=== PATIENT | female | born 1990 | race Caucasian/White ===

== ENCOUNTER 2018-03-21 10:25 | Outpatient (CLI) | payer OTHER ==
[~2018-03-21] VITALS: Ht 174 cm; Wt 91.5 kg
[2018-03-21 10:50] VITALS: BP 151/90
[2018-03-21] MEDS ORDERED: PRENTAB9 PO (10:52)
[2018-03-21] MEDS ORDERED: OMEGCAP4 PO (10:52)
[2018-03-21 11:00] VITALS: BP 133/84
[2018-03-21 11:13] VITALS: BP 136/85
--- NOTE | 2018-03-21 13:41 | HPE ---
DATE OF ADMISSION: 03/21/2018 28-year-old, 1, para 0, last menstrual period (LMP) 06/16/2017, estimated date of confinement (EDC) 03/23/2018, history of questionable spontaneous rupture of membranes (SROM) at 39 and 2 weeks gestation. Risk factors is the baby has renal pelviectasis. Her labs are B+, HIV negative, hepatitis negative, RPR negative, rubella immune. Varicella immune. Pap normal. Urine negative. Gonorrhea and chlamydia negative. 1 hour glucose was 115. GBS is positive. On examination, no distress. Symphysis fundus height is 39. Four quadrant bowel sounds are noted. Category 1 strip. No contractions. Accelerations noted, moderate variability and baseline was normal. On examination, there was no evidence of spontaneous rupture of membranes. Nitrazine was negative. Slide was negative for ferning, for bacterial vaginosis (BV) or yeast. Cervix was closed, posterior, 2 cm, -3 station. Urine is 1.010, pH 7, trace of blood. Blood pressure initially was 151/90, respirations 18, pulse 70, temperature 97.6. We established that she had no contractions and she did not have ruptured membranes, has an appointment in 2 days' time. She was discharged with instructions and she was encouraged to keep her appointment. She was undelivered.
== END 2018-03-21 12:00 | disposition home or self-care (01) ==
LOC: M LDO 10:25
PROVIDERS: ATTEND Obstetrics & Gynecology
DX: O47.1 False labor at or after 37 completed weeks of gestation (principal); Z3A.39 39 weeks gestation of pregnancy
CPT/HCPCS: 59025; G0378; G0463

== ENCOUNTER 2018-03-26 05:29 | Inpatient (IN) | payer OTHER ==
[~2018-03-26] VITALS: Ht 172.7 cm; Wt 92.8 kg
[2018-03-26] VITALS (41 sets, daily range): BP systolic 114–170; BP diastolic 65–99
[~2018-03-26 05:29] MED LIST: OMEGCAP4 PO; PRENTAB9 PO
[2018-03-26] MEDS ORDERED: LR 1,000 ML IV SCH ×2 (07:24)
[2018-03-26] MEDS ORDERED: PENICILLIN G POTASSIUM IV 5 MU in D5W MINI-BAG PLUS 100 ML IV STA ×2 (07:24→08:03)
[2018-03-26] MEDS ORDERED: LACTATED RINGER'S 1000 ML IV STA (07:24)
--- NOTE | 2018-03-26 07:48 | HPEPDOC ---
Obstetrical History & Physical General Date of Admission Mar 26, 2018 at 07:29 History of Present Illness Madhuri is a 28yo with SIUP at 40w3d by lmp c/w 8wk u/s who presents with increasingly uncomfortable/regular ctx since 2300 last night. No LOF. No vaginal bleeding. Good movement. No f/c/n/v/CP/SOB/LAWSON/vision changes. 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: No pertinent history Past Medical History Medical History starting BMI 25.5 Surgical History: [place] teeth, Other (left arm ORIF) Family History Significant Family History: No pertinent family hx Social History Marital Status: Family situation: Spouse/partner home Psychosocial History: No pertinent psych hx * Smoker: non-smoker Alcohol: Denies Drugs: denies Imunizations Tdap status: current Influenza Status: current Allergies Coded Allergies: Bismuth Subsalicylate (Verified Allergy, Mild, RASH, 03/21/18) [place] (Verified Allergy, Mild, RASH, 03/21/18) Medications Scheduled Multivitamins/ ( 27-0.8 mg) 1 Tab Tab, 1 TAB PO DAILY Miscellaneous Medications (Purd[place] III Epa+Dha 1000 mg) 1 Cap Cap, 1 CAP PO Physical Examination Physical Examination GENERAL: Alert and oriented times three. ABDOMEN: Gravid and non-tender to touch. FETUS: Is vertex (VTX) by sterile vaginal examination (SVE) EXTREMITIES: No edema Vital Signs/I&O Vital Signs Date Time Temp Pulse Resp B/P (MAP) Pulse Ox O2 Delivery O2 Flow Rate FiO2 03/26/18 05:46 98.3 100 149/99 (116) Pertinent Laboratoy Data Blood Type: B+ RBC Antibody Screen: Negative HIV: Negative Hepatitis B: Negative Hepatitis C: Unknown Rapid Plasma Reagin: Nonreactive Rubella: Immune Varicella: Immune Chlamydia/Gonorrhea: Negative Group B Streptococcus: Positive Cystic Fibrosis: Negative Glucose Tolerance Test: 115 Anatomy Ultrasound Ultrasound Date: Nov 06, 2017 Placenta Location: Posterior Normal Anatomy: No (bilateral renal pyelectasis, resolved on u/s on Nov) Placenta Previa: No Steroid Therapy Steroid Therapy: No Vaginal Examination Dilation: 4 cm Effacement: 80% Station: -2 Cervical Consistency: Soft Cervical Position: Middle Presentation: Cephalic presentation Assessment Heart Rate (FHR): 130 Variability: Moderate Accelerations: Positive Decelerations: None Tocometer Contractions: Yes Frequency: irregular Assessment/Plan Assessment Madhuri is a 28yo with SIUP at 40w3d by lmp c/w 8wk u/s with new diagnosis of GHTN in latent labor. She had elevated bp at triage visit on Feb and again today is running 140's systolic/90's diastolic. No sx of pre-E. Cat I FHRT, irregular ctx. GBS positive. Cephalic by SCE, 4/80/-2. PMhx only s ignificant for starting BMI 25.5, 31lb weight gain. Plan Admit and orient. Sample Coordinator and consent. Diet: clear liquids Group B Streptococcus (GBS) positive: penicillin per protocol Labs and intravenous (IV) per unit protocol with pre-E profile Counseled on Pitocin and augmentation of labor (IOL). Lactated Ringers (LR): Bolus 500 mL, then at 125 mL/hr. Anticipate normal spontaneous delivery () Candidate for epidural as desired MD Jessee Burkett Katrina D MD Mar 26, 2018 07:48
[2018-03-26] MEDS ORDERED: OXYTOCIN DRIP 30 UNITS in APPROPRIATE DILUENT 1 EA IV SCH ×2 (08:00→18:45)
[2018-03-26] MEDS ORDERED: PENICILLIN G POTASSIUM IV 2.5 MU in APPROPRIATE DILUENT 1 EA IV SCH ×2 (08:15→11:30)
[2018-03-26 08:37] LABS: HEMATOCRIT 38.9 % (36.0-47.0); HEMOGLOBIN 13.1 g/dl (12.0-15.5); MEAN CORPUSCULAR HEMOGLOBIN 30.3 pg (27.0-33.0); MEAN CORPUSCULAR HGB CONC 33.7 g/dl (32.0-36.5); MEAN CORPUSCULAR VOLUME 89.8 fl (80.0-96.0); PLATELET COUNT, AUTOMATED 180 10^3/uL (150-450); RED BLOOD COUNT 4.33 10^6/uL (4.00-5.40); WHITE BLOOD COUNT 10.1 10^3/uL (4.0-10.0)
[2018-03-26 08:51] LABS: ALT/SGPT 17 U/L (12-78); BILIRUBIN,TOTAL 0.4 MG/DL (0.2-1.0); GLOMERULAR FILTRATION RATE > 60.0 (>60); LDH LACTATE DEHYDROGENASE 167 U/L (84-246)
[2018-03-26] MEDS ORDERED: FAMOTIDINE 20 MG TAB PO PRN (10:45)
[2018-03-26] MEDS ORDERED: FENTANYL 2MCG/ML ROPIVACAINE 0.2% IN 0.9% NACL 100ML IVBAG As Ordered ONE (10:58)
[2018-03-26] MEDS: PENICILLIN G POTASSIUM IV 2.5 MU in APPROPRIATE DILUENT 1 EA IV SCH ×2 (12:00→16:32)
[2018-03-26] MEDS ORDERED: FENTANYL/ROPIVACAINE/NACL BAG 100 ML EPIDURAL SCH (12:15)
[2018-03-26] MEDS ORDERED: EPIDURAL/PCA KEYS XX PRN (12:15)
[2018-03-26] MEDS ORDERED: NALOXONE INJ 0.4 MG/1 ML VIAL (J2310) IV PRN (12:15)
[2018-03-26] MEDS ORDERED: ePHEDrine SULFATE 25 MG/5 ML(5MG/ML) SYRINGE IV PRN (12:15)
[2018-03-26] MEDS ORDERED: LACTATED RINGER'S 1000 ML IV PRN (12:15)
[2018-03-26] MEDS ORDERED: EPIDURAL COMMENT XX SCH (12:15)
[2018-03-26] MEDS ORDERED: diphenhydrAMINE INJ 50MG/ML VIAL (J1200) IV PRN (12:15)
[2018-03-26] MEDS ORDERED: REFRIGERATOR IV KEYS XX PRN (12:15)
[2018-03-26] MEDS ORDERED: ONDANSETRON 4MG/2ML VIAL (J2405) IV PRN (12:15)
--- NOTE | 2018-03-26 17:15 | IPNPDOC ---
Text Note Date of Service The patient was seen on 03/26/18. NOTE Pitocin at 12 mu/min FHT Cat 1 all day At ~noon after epidural with Daniels was 4 cm SROM at ~1430, clr Cx C/C/+2/VAZQUEZ Start pushing in ~30 min Sessions MD KESSLER,Teresita, I+O VS, Teresita I+O Laboratory Tests 03/26/18 08:15 Red Blood Count 4.33, Mean Corpuscular Volume 89.8, Mean Corpuscular Hemoglobin 30.3, Mean Corpuscular Hemoglobin Concent 33.7, Red Cell Distribution Width 12.5, Aspartate Amino Transf (AST/SGOT) 18, Alanine Aminotransferase (ALT/SGPT) 17, Lactate Dehydrogenase 167, Total Bilirubin 0.4, Uric Acid 5.0 Vital Signs Date Time Temp Pulse Resp B/P (MAP) Pulse Ox O2 Delivery O2 Flow Rate FiO2 03/26/18 12:50 64 18 141/83 (102) 03/26/18 12:07 98.2 SESSIONS,DRAKE Garrett MD Mar 26, 2018 17:14
[2018-03-26] MEDS ORDERED: RHOGAM 300 MCG (1500 IU) INJ (J2790) IM SCH (18:45)
[2018-03-26] MEDS ORDERED: IBUPROFEN 800 MG TAB PO PRN (18:45)
[2018-03-26] MEDS ORDERED: METOCLOPRAMIDE INJ 10MG/2ML VIAL (J2765) IV PRN (18:45)
[2018-03-26] MEDS ORDERED: MEASLES,MUMPS,RUBELLA VACCINE INJ (MMR-II) (90707) SC SCH (18:45)
[2018-03-26] MEDS ORDERED: DIBUCAINE 1% OINTMENT 30GM TOP PRN (18:45)
--- NOTE | 2018-03-26 18:57 | DNPDOC ---
[facility] Delivery Note Delivery Note DATE OF DELIVERY: @1815 PREDELIVERY DIAGNOSIS: 40 3/7 weeks' gestation and labor. POST DELIVERY DIAGNOSIS: Delivered. PROCEDURE: Spontaneous vaginal delivery INTERNET SALESPERSON: Dr. Hanson ANESTHESIA: epidural ESTIMATED BLOOD LOSS: 200 mL. FINDINGS: 8 pound 12 ounce male , Score 8/9 DELIVERY SUMMARY: Excellent effort, VAZQUEZ to LOT and no delay of the vtx. Posterior left hand noted to be compound under the chin on right side of face, anterior right shoulder. No delay of either shoulder. Vigorous male to abdomen. Cord C/C by FOB. Cord blood. Placenta intact with slight traction and fundal massage. Pit going 999. Fundus firm. 1st degr lac repaired with 3- 0 vicryl, left labial extension and complete separation repaired with 4-0 vicryl. Joined sutures medially at the interior vaginal wall. Good cosmesis/hemostasis. Sessions MD HANSON,DRAKE Garrett MD Mar 26, 2018 18:57
[2018-03-26] MEDS: ACETAMINOPHEN TAB 650MG DOSE (2X325MG) PO PRN (21:18)
[2018-03-26] MEDS: DOCUSATE SODIUM 100 MG CAP PO SCH (21:18)
--- NOTE | 2018-03-27 05:12 | IPNPDOC ---
Text Note Date of Service The patient was seen on 03/27/18. NOTE PPD1 States feeling well, pain controlled with prescribed meds. Baby bonding and feeding well. No heavy VB. Lochia slowing. Ambulating and voiding well. Tolerating PO without issues. GBS incomplete, baby waiting on blood cx's. VSSAF NAD A&O RRR CTAB LE no C/C/E Ut at U-2, firm a/p: Doing well. Cont routine care. D/C likely tomorrow. Sessions Teresita KAUR, I+O Teresita KESSLER I+O Laboratory Tests 03/26/18 08:15 Red Blood Count 4.33, Mean Corpuscular Volume 89.8, Mean Corpuscular Hemoglobin 30.3, Mean Corpuscular Hemoglobin Concent 33.7, Red Cell Distribution Width 12.5, Aspartate Amino Transf (AST/SGOT) 18, Alanine Aminotransferase (ALT/SGPT) 17, Lactate Dehydrogenase 167, Total Bilirubin 0.4, Uric Acid 5.0 Vital Signs Date Time Temp Pulse Resp B/P (MAP) Pulse Ox O2 Delivery O2 Flow Rate FiO2 03/26/18 22:30 143/81 (101) 03/26/18 20:30 99.4 82 18 l I&O- Last 24 Hours up to 6 AM 03/27/18 06:00 Intake Total 3789 ml Output Total 2500 ml Balance 1289 ml DRAKE HANSON MD Mar 27, 2018 05:12
[2018-03-27 06:00] VITALS: BP 145/69
[2018-03-27] MEDS: METHYLERGONOVINE MALEATE 0.2 MG TAB PO SCH ×3 (08:37→19:33)
[2018-03-27] MEDS: PRENATAL VITAMINS CHEWABLE TABLET PO SCH (08:37)
[2018-03-27] MEDS: DOCUSATE SODIUM 100 MG CAP PO SCH ×2 (08:37→20:25)
[2018-03-27] MEDS: ACETAMINOPHEN TAB 650MG DOSE (2X325MG) PO PRN ×2 (08:40→14:32)
[2018-03-27 18:06] VITALS: BP 137/88
[2018-03-28] MEDS: METHYLERGONOVINE MALEATE 0.2 MG TAB PO SCH ×2 (01:12→07:32)
[2018-03-28 06:03] VITALS: BP 134/90
--- NOTE | 2018-03-28 06:28 | DS.PDOC ---
Discharge Summary General Date of Admission Mar 26, 2018 at 07:29 Date of Discharge Mar 28, 2018 Discharge Summary HOSPITAL COURSE: Ms. Joseph is a 28 yo G1 now P1 who underwent an uncomplicated on 26Mar2018 after being admitted for active labor. Her course has been unremarkable. She has had mildly elevated BPs but nothing severe. On her day of discharge she met all appropriate discharge criteria. She was ambulating, voiding, tolerating a regular diet, had minimal lochia, and had minimal pain. She also had no headaches, RUQ pain, visual changes, or SOB. DISCHARGE MEDICATIONS: Please see below. ALLERGIES: Please see below. PHYSICAL EXAMINATION ON DISCHARGE: VITAL SIGNS: Please see below. GENERAL: AAOX3, NAD ABDOMINAL EXAMINATION: Fundus firm at U-2. No fundal tenderness. EXTREMITIES: No edema PSYCHIATRIC EXAMINATION: Affect appropriate LABORATORY DATA: Please see below. ACTIVITY: Pelvic rest for 6-8 weeks. DIET: Regular DISCHARGE PLAN: discharge home on 28Mar2018 DISPOSITION: discharge home. DISCHARGE INSTRUCTIONS: 1. Pelvic rest for 6-8 weeks. ITEMS TO FOLLOWUP ON ON OUTPATIENT: 1. appointment in 6-8 weeks. DISCHARGE CONDITION: Stable. TIME SPENT ON DISCHARGE: Greater than 20 minutes. Olesya Suárez DO Vital Signs/I&Os Vital Signs Date Time Temp Pulse Resp B/P (MAP) Pulse Ox O2 Delivery O2 Flow Rate FiO2 03/28/18 06:03 97.7 85 18 134/90 (105) 03/27/18 18:06 95 Room Air Discharge Medications Scheduled Multivitamins/ ( 27-0.8 mg) 1 Tab Tab, 1 TAB PO DAILY, (Reported) Miscellaneous Medications ([place] III Epa+Dha 1000 mg) 1 Cap Cap, 1 CAP PO, (Reported) Allergies Coded Allergies: Bismuth Subsalicylate (Verified Allergy, Mild, RASH, 03/21/18) [place] (Verified Allergy, Mild, RASH, 03/21/18) OLESYA SUÁREZ DO Mar 28, 2018 06:28
[2018-03-28] MEDS ORDERED: MOTR200T44 PO (07:29)
[2018-03-28] MEDS ORDERED: APAP325T4 PO (07:29)
[2018-03-28] MEDS ORDERED: COLA100C5 PO (07:29)
[2018-03-28] MEDS: DOCUSATE SODIUM 100 MG CAP PO SCH (07:32)
[2018-03-28] MEDS: PRENATAL VITAMINS CHEWABLE TABLET PO SCH (07:32)
--- NOTE | 2018-03-28 13:22 | IPN ---
DATE: 03/27/2018 This patient requested circumcision of her male . After discussing risks, benefits of circumcision, the medical and nonmedical indications, penile block and aftercare, expressed understanding of penile block, aftercare and bleeding, signed the consent form. All questions were answered. We await the clearance by the group insurance specialist. We spent 20 minutes in consultation.
== END 2018-03-28 13:35 | disposition home or self-care (01) | DRG 807 ==
LOC: M LDO 05:29 → M LDI 07:29 → M OBS 20:28
PROVIDERS: ADMIT Obstetrics & Gynecology; ATTEND Obstetrics & Gynecology
PROC: 10E0XZZ Delivery of Products of Conception, External Approach (ICD-10-PCS; principal; 2018-03-26)
PROC: 0HQ9XZZ Repair Perineum Skin, External Approach (ICD-10-PCS; 2018-03-26)
DX: O48.0 Post-term pregnancy (principal); Z37.0 Single live birth; Z3A.40 40 weeks gestation of pregnancy; O99.820 Streptococcus B carrier state complicating pregnancy; O13.4 Gestational [pregnancy-induced] hypertension without significant proteinuria, complicating childbirth; O32.6XX0 Maternal care for compound presentation, not applicable or unspecified; O70.0 First degree perineal laceration during delivery; Z88.8 Allergy status to other drugs, medicaments and biological substances; Z91.018 Allergy to other foods

== ENCOUNTER 2021-12-26 12:49 | Inpatient (IN) | payer OTHER ==
[2021-12-26] VITALS (29 sets, daily range): BP systolic 99–181; BP diastolic 50–102
[~2021-12-26] VITALS: Ht 175.3 cm; Wt 91.8 kg
[~2021-12-26 12:49] MED LIST changes: +APAP325T4 PO; +COLA100C5 PO; +MOTR200T44 PO
[2021-12-26] MEDS ORDERED: AMPICILLIN SOD 2 GM in D5W MINI-BAG PLUS 100 ML IV STA (13:01)
[2021-12-26] MEDS ORDERED: LACTATED RINGER'S 1000 ML IV STA (13:01)
[2021-12-26] MEDS ORDERED: CARBOPROST TROMETHAMINE 250 MCG/ML AMP IM PRN (13:05)
[2021-12-26] MEDS ORDERED: METHYLERGONOVINE MALEATE 0.2 MG/ML VIAL (J2210) IM PRN (13:05)
[2021-12-26] MEDS ORDERED: OXYTOCIN DRIP 30 UNITS in IV 1 EA IV PRN ×6 (13:05)
[2021-12-26] MEDS ORDERED: LIDOCAINE 1% MDV 20ML VIAL INFIL PRN (13:05)
[2021-12-26] MEDS ORDERED: OXYTOCIN INJ 10 UNITS/ML VIAL (J2590) IV PRN (13:05)
[2021-12-26] MEDS ORDERED: OXYTOCIN INJ 10 UNITS/ML VIAL (J2590) IM PRN (13:05)
[2021-12-26] MEDS ORDERED: TRANEXAMIC ACID INJection 1,000 MG in NS 100 ML IV PRN (13:05)
[2021-12-26] MEDS ORDERED: ACET500P3 PO (13:08)
[2021-12-26 13:48] LABS: BASO % 0.2 % (0.0-1.0); EOS % 0.3 % (0.0-3.0); HEMATOCRIT 36.8 % (36.0-47.0); HEMOGLOBIN 12.5 g/dl (12.0-15.5); LYMPH % 9.3 % (24.0-44.0); MEAN CORPUSCULAR HEMOGLOBIN 29.7 pg (27.0-33.0); MEAN CORPUSCULAR VOLUME 87.4 fl (80.0-96.0); MONO # 0.7 10^3/uL (0.0-0.8); NEUTROPHILS # 9.2 10^3/uL (1.5-8.5); NEUTROPHILS % 83.5 % (36.0-66.0); PLATELET COUNT, AUTOMATED 168 10^3/uL (150-450); RED BLOOD COUNT 4.21 10^6/uL (4.00-5.40)
[2021-12-26] MEDS ORDERED: OMEG10002 PO (13:52)
[2021-12-26] MEDS ORDERED: tumeric PO (13:52)
[2021-12-26] MEDS ORDERED: HOME MED LIST COMPLETE! XX SCH (13:55)
[2021-12-26] MEDS ORDERED: FENTANYL 2MCG/ML ROPIVACAINE 0.2% IN 0.9% NACL 100ML IVBAG As Ordered ONE (14:31)
[2021-12-26] MEDS ORDERED: FENTANYL/ROPIVACAINE/NACL BAG 100 ML EPIDURAL SCH (14:35)
[2021-12-26] MEDS ORDERED: ONDANSETRON 4MG 2ML VIAL IV PRN (14:35)
[2021-12-26] MEDS ORDERED: LR 500 ML IV PRN (14:35)
[2021-12-26] MEDS ORDERED: NALOXONE INJ 0.4MG/1ML VIAL (J2310 PER 1MG) IV PRN (14:35)
[2021-12-26] MEDS ORDERED: diphenhydrAMINE 50MG/ML VIAL (J1200) IV PRN (14:35)
[2021-12-26] MEDS ORDERED: EPIDURAL/PCA KEYS XX PRN (14:35)
[2021-12-26] MEDS ORDERED: ePHEDrine SULFATE 25 MG/5 ML(5MG/ML) SYRINGE IVP PRN (14:35)
[2021-12-26] MEDS: LR 1,000 ML IV SCH ×2 (15:12→21:05)
[2021-12-26 17:09] LABS: ALT/SGPT 23 U/L (12-78); BILIRUBIN,TOTAL 0.7 MG/DL (0.2-1.0); CREATININE FOR GFR 0.62 MG/DL (0.55-1.30); GLOMERULAR FILTRATION RATE > 60.0 (>60); LDH LACTATE DEHYDROGENASE 190 U/L (84-246); URIC ACID 5.1 MG/DL (2.6-6.0)
[2021-12-26 17:16] LABS: APPEARANCE, URINE MANUAL CLEAR (CLEAR); BILIRUBIN, URINE MANUAL NEGATIVE (NEGATIVE); BLOOD URINE MANUAL POSITIVE (NEGATIVE); COLOR, URINE MANUAL YELLOW (YELLOW); GLUCOSE, URINE (UA) MANUAL NEGATIVE (NEGATIVE); KETONE, URINE MANUAL 2+ mg/dL (NEGATIVE); LEUKOCYTE ESTERASE, URINE MAN TRACE (NEGATIVE); NITRITE, URINE MANUAL NEGATIVE (NEGATIVE); PROTEIN, URINE MANUAL 1+ mg/dL (NEGATIVE); UROBILINOGEN, URINE MANUAL NORMAL (NORMAL)
[2021-12-26 17:34] LABS: BACTERIA, URINE MOD AMOUNT; SQUAMOUS EPITHELIAL CELL URINE SMALL AMOUNT /hpf (SMALL AMT); WBC, URINE 0-1 /hpf (0-3)
[2021-12-26] MEDS ORDERED: AMPICILLIN SOD 1 GM in D5W MINI-BAG PLUS 50 ML IV SCH (17:45)
[2021-12-26] MEDS ORDERED: OXYTOCIN 30 UNITS IN 0.9% NaCl 500ML IV BAG (J2590) As Ordered ONE (17:49)
[2021-12-26 18:14] LABS: TOTAL PROTEIN,RANDOM URINE 69.2 MG/DL (0.0-12.0)
[2021-12-26] MEDS ORDERED: diphenhydrAMINE 50MG/ML VIAL (J1200) IV ONE (19:15)
[2021-12-26] MEDS ORDERED: OXYTOCIN DRIP 30 UNITS in IV 1 EA IV SCH (19:15)
[2021-12-26] MEDS ORDERED: DOCUSATE SODIUM 100MG CAPSULE PO PRN (20:30)
[2021-12-26] MEDS ORDERED: DIBUCAINE 1% OINTMENT 30GM TOP PRN (20:30)
[2021-12-26] MEDS ORDERED: METHYLERGONOVINE MALEATE 0.2 MG TAB PO PRN (20:30)
[2021-12-26] MEDS ORDERED: RHOGAM 300 MCG (1500 IU) INJ (J2790) IM SCH (20:30)
[2021-12-26] MEDS ORDERED: LR 1,000 ML IV SCH (20:30)
[2021-12-26] MEDS ORDERED: ACETAMINOPHEN 500 MG TAB PO PRN (20:30)
[2021-12-26] MEDS ORDERED: ACETAMINOPHEN TAB 650MG DOSE (2X325MG) PO PRN (20:30)
[2021-12-26] MEDS ORDERED: IBUPROFEN 600MG TAB PO PRN (20:30)
[2021-12-26] MEDS ORDERED: METOCLOPRAMIDE INJ 10MG/2ML VIAL (J2765 PER 1) IV PRN (20:30)
[2021-12-26] MEDS ORDERED: OXYTOCIN DRIP 30 UNITS in IV 1 EA IV ONE (22:00)
[2021-12-26] MEDS ORDERED: BUTORPHANOL 2 MG/ML INJ (J0595) IV ONE (22:40)
[2021-12-26 23:50] LABS: BASO % 0.1 % (0.0-1.0); EOS % 0.1 % (0.0-3.0); HEMATOCRIT 34.3 % (36.0-47.0); HEMOGLOBIN 11.5 g/dl (12.0-15.5); LYMPH # 1.3 10^3/uL (1.5-5.0); LYMPH % 9.6 % (24.0-44.0); MEAN CORPUSCULAR HEMOGLOBIN 29.4 pg (27.0-33.0); MEAN CORPUSCULAR HGB CONC 33.5 g/dl (32.0-36.5); MEAN CORPUSCULAR VOLUME 87.7 fl (80.0-96.0); MONO # 1.2 10^3/uL (0.0-0.8); MONO % 9.4 % (2.0-8.0); NEUTROPHILS # 10.6 10^3/uL (1.5-8.5); NEUTROPHILS % 80.3 % (36.0-66.0); PLATELET COUNT, AUTOMATED 161 10^3/uL (150-450); RED BLOOD COUNT 3.91 10^6/uL (4.00-5.40); WHITE BLOOD COUNT 13.2 10^3/uL (4.0-10.0)
[2021-12-26] MEDS ORDERED: AMPICILLIN SOD/SULBACTAM SOD 3 GM in D5W MINI-BAG PLUS 100 ML IV ONE (23:50)
[2021-12-27] LABS: INR 0.94; PROTHROMBIN TIME 12.8 SECONDS (12.5-14.5)
[2021-12-27 00:01] LABS: PARTIAL THROMBOPLASTIN TIME 26.2 SECONDS (24.8-34.2)
[2021-12-27] MEDS ORDERED: LOPERAMIDE 2 MG CAPLET PO PRN (00:15)
[2021-12-27 02:40] VITALS: BP 127/70
[2021-12-27 05:37] VITALS: BP 118/56
[2021-12-27] MEDS: PRENATAL VITAMINS CHEWABLE TABLET PO SCH (08:09)
[2021-12-27 08:29] LABS: HEMOGLOBIN 10.1 g/dl (12.0-15.5); MEAN CORPUSCULAR HEMOGLOBIN 29.7 pg (27.0-33.0); MEAN CORPUSCULAR HGB CONC 33.7 g/dl (32.0-36.5); MEAN CORPUSCULAR VOLUME 88.2 fl (80.0-96.0); PLATELET COUNT, AUTOMATED 137 10^3/uL (150-450); WHITE BLOOD COUNT 12.9 10^3/uL (4.0-10.0)
[2021-12-27 09:05] LABS: ALT/SGPT 17 U/L (12-78); BILIRUBIN,TOTAL 0.3 MG/DL (0.2-1.0); CREATININE FOR GFR 0.55 MG/DL (0.55-1.30); GLOMERULAR FILTRATION RATE > 60.0 (>60); LDH LACTATE DEHYDROGENASE 177 U/L (84-246); URIC ACID 4.4 MG/DL (2.6-6.0)
[2021-12-27] MEDS: IBUPROFEN 800 MG TAB PO PRN (16:04)
[2021-12-27 18:00] VITALS: BP 133/70
[2021-12-28] MEDS: IBUPROFEN 800 MG TAB PO PRN (01:47)
[2021-12-28 06:00] VITALS: BP 117/67
[2021-12-28] MEDS ORDERED: MEASLES,MUMPS,RUBELLA VACCINE INJ (MMR-II) (90707) SC.IMMUN ONE (09:00)
[2021-12-28] MEDS: PRENATAL VITAMINS CHEWABLE TABLET PO SCH (10:28)
== END 2021-12-28 14:00 | disposition home or self-care (01) | DRG 806 ==
LOC: M LDO 12:49 → M LDI 13:47 → M OBS 12-27 02:28
PROVIDERS: ADMIT Obstetrics & Gynecology; ATTEND Obstetrics & Gynecology
PROC: 10E0XZZ Delivery of Products of Conception, External Approach (ICD-10-PCS; principal; 2021-12-26)
PROC: 10907ZC Drainage of Amniotic Fluid, Therapeutic from Products of Conception, Via Natural or Artificial Opening (ICD-10-PCS; 2021-12-26)
DX: O69.81X0 Labor and delivery complicated by cord around neck, without compression, not applicable or unspecified (principal); Z37.0 Single live birth; O72.1 Other immediate postpartum hemorrhage; Z3A.39 39 weeks gestation of pregnancy; O77.0 Labor and delivery complicated by meconium in amniotic fluid; O99.824 Streptococcus B carrier state complicating childbirth; O32.6XX0 Maternal care for compound presentation, not applicable or unspecified; O13.2 Gestational [pregnancy-induced] hypertension without significant proteinuria, second trimester; Z88.8 Allergy status to other drugs, medicaments and biological substances; Z91.018 Allergy to other foods; O70.0 First degree perineal laceration during delivery

== ENCOUNTER 2022-07-06 12:49 | Emergency (ER) | payer OTHER ==
[~2022-07-06] VITALS: Ht 175.3 cm; Wt 93.9 kg
[~2022-07-06 12:49] MED LIST changes: +ACET500P3 PO; +OMEG10002 PO; +tumeric PO
[2022-07-06 16:20] LABS: HEMATOCRIT 41.3 % (36.0-47.0); HEMOGLOBIN 13.9 g/dl (12.0-15.5); MEAN CORPUSCULAR HEMOGLOBIN 28.3 pg (27.0-33.0); MEAN CORPUSCULAR HGB CONC 33.7 g/dl (32.0-36.5); MEAN CORPUSCULAR VOLUME 84.1 fl (80.0-96.0); PLATELET COUNT, AUTOMATED 242 10^3/uL (150-450); RED BLOOD COUNT 4.91 10^6/uL (4.00-5.40); WHITE BLOOD COUNT 5.6 10^3/uL (4.0-10.0)
[2022-07-06 16:46] LABS: ALBUMIN 3.9 G/DL (3.2-5.2); BILIRUBIN,DIRECT 0.1 MG/DL (<0.4); BILIRUBIN,TOTAL 0.3 MG/DL (0.3-1.2); BLOOD UREA NITROGEN 12 MG/DL (9-23); CALCIUM LEVEL 9.4 MG/DL (8.5-10.1); CARBON DIOXIDE LEVEL 26 MMOL/L (20-31); CHLORIDE LEVEL 107 MMOL/L (98-107); CREATININE FOR GFR 0.68 MG/DL (0.55-1.30); GLOMERULAR FILTRATION RATE > 60.0 (>60); GLUCOSE, FASTING 89 MG/DL (60-100); POTASSIUM SERUM 3.8 MMOL/L (3.5-5.1); SODIUM LEVEL 140 MMOL/L (136-145); TOTAL PROTEIN 7.4 G/DL (5.7-8.2)
[2022-07-06 16:58] LABS: HCG, SERUM QUALITATIVE NEGATIVE (NEGATIVE)
[2022-07-06 18:26] VITALS: BP 144/72
== END 2022-07-06 18:29 | disposition home or self-care (01) ==
LOC: M ED 12:49
DX: N93.9 Abnormal uterine and vaginal bleeding, unspecified (principal); Z88.8 Allergy status to other drugs, medicaments and biological substances; Z91.018 Allergy to other foods; Z79.899 Other long term (current) drug therapy

== ENCOUNTER 2023-07-28 02:33 | Emergency (ER) | payer OTHER ==
[~2023-07-28] VITALS: Ht 175.3 cm; Wt 99.6 kg
[2023-07-28 07:27] VITALS: BP 135/84; TEMP 97.3; O2SAT 94
[2023-07-28] MEDS ORDERED: AZIT-12 PO (08:21)
== END 2023-07-28 08:27 | disposition home or self-care (01) ==
LOC: M ED 02:33
DX: R09.89 Other specified symptoms and signs involving the circulatory and respiratory systems (principal); Z79.899 Other long term (current) drug therapy; Z88.8 Allergy status to other drugs, medicaments and biological substances; Z91.018 Allergy to other foods